=== PATIENT | female | born 1980 | race African-American/Black ===

== ENCOUNTER → 2020-05-13 | Day surgery (SDC) | payer BC ==
[~2020-05-13] VITALS: Ht 162.6 cm; Wt 73.5 kg
[~2020-05-13] MED LIST: LACTATED RINGERS 1,000 ML IV SCH; METOCLOPRAMIDE; NORCO 5-325; PROM25TA13; TRAM50TA
[2020-05-13 10:01] LABS: UCG SCREEN NEGATIVE
[2020-05-13 10:32] LABS: BASOPHILS % 0.9 % (0.0-2.0); EOSINOPHILS % 1.2 % (0.0-5.0); HEMATOCRIT. 41.5 % (36.0-48.0); LYMPHOCYTES % 35.5 % (20.0-50.0); MEAN CORPUSCULAR HEMOGLOBIN 30.6 pg (28.0-32.0); MEAN CORPUSCULAR VOLUME 90.6 fL (81.0-99.0); MEAN PLATELET VOLUME 8.1 fl (7.4-10.4); MONOCYTES % 7.4 % (2.0-8.0); PLATELET 394 x1000/uL (130-400); RED BLOOD CELL COUNT 4.58 mill/uL (4.2-5.4); RED CELL DISTRIBUTION WIDTH 13.9 % (11.6-14.6)
[2020-05-13 10:38] LABS: CHLORIDE 109 mEq/L (98-107)
[2020-05-13 10:43] LABS: PARTIAL THROMBOPLASTIN TIME 28.9 sec (23.4-31.0); PROTHROMBIN TIME 10.2 sec (9.6-11.0)
== END | disposition home or self-care (01) ==
LOC: OR 09:36
PROVIDERS: ATTEND Obstetrics & Gynecology
DX: D25.9 Leiomyoma of uterus, unspecified (principal); N93.8 Other specified abnormal uterine and vaginal bleeding; F17.210 Nicotine dependence, cigarettes, uncomplicated; Z79.899 Other long term (current) drug therapy; Z98.890 Other specified postprocedural states
CPT/HCPCS: 36415; 80053; 81025; 85025; 86850; 86900; 88305

== ENCOUNTER → 2020-05-13 | Outpatient (CLI) | payer BC ==
[~2020-05-13] MED LIST changes: +FENTANYL CITRATE/PF 50MCG/ML 2ML VIAL ONE; +GLYCOPYRROLATE 0.2 MG/ML 2ML VIAL ONE; -LACTATED RINGERS 1,000 ML IV SCH; +METOCLOPRAMIDE HCL 10MG/2ML VIAL ONE; +MIDAZOLAM HCL 2 MG/2 ML VIAL ONE; +ONDANSETRON HCL 4MG/2ML INJ ONE; +PROPOFOL 200MG/20ML VIAL IV ONE; +SUCCINYLCHOLINE CHLORIDE 200MG/10ML IV ONE
== END | disposition home or self-care (01) ==
LOC: LAB 08:38
PROVIDERS: ATTEND Obstetrics & Gynecology
DX: Z01.812 Encounter for preprocedural laboratory examination (principal); Z20.822 Contact with and (suspected) exposure to COVID-19; Z87.891 Personal history of nicotine dependence; Z79.899 Other long term (current) drug therapy; Z98.890 Other specified postprocedural states
CPT/HCPCS: 87426; J0330; J2250; J2405; J2704; J2765; J3010; J3490

== ENCOUNTER 2020-11-03 13:27 | Emergency (ER) | payer BC, MEDICAID ==
[~2020-11-03] VITALS: Ht 162.6 cm; Wt 73.0 kg
[2020-11-03] MEDS ORDERED: LIDOCAINE HCL/PF 1% 10 MG/ML 5ML VIAL INFIL ONE (14:30)
[2020-11-03] MEDS ORDERED: BACITRACIN ZINC OINT UDPKT TOP ONE (14:30)
[2020-11-03] MEDS ORDERED: ACETAMINOPHEN WITH CODEINE 300/30MG TABLET PO ONE (14:30)
[2020-11-03 15:33] VITALS: BP 128/99
[2020-11-03] MEDS ORDERED: CEPH500C2 MT (16:00)
[2020-11-03] MEDS ORDERED: METR-167 MT (16:00)
== END 2020-11-03 17:08 | disposition home or self-care (01) ==
LOC: ER 13:27
DX: L02.611 Cutaneous abscess of right foot (principal); N76.0 Acute vaginitis; B96.89 Other specified bacterial agents as the cause of diseases classified elsewhere
CPT/HCPCS: 10060; 87210; 99284; A4217; J3490; Z7610

== ENCOUNTER → 2021-01-20 | Day surgery (SDC) | payer BC ==
[~2021-01-20] VITALS: Ht 162.6 cm; Wt 72.6 kg
[~2021-01-20] MED LIST changes: +CEPH500C2 MT; -FENTANYL CITRATE/PF 50MCG/ML 2ML VIAL ONE; -GLYCOPYRROLATE 0.2 MG/ML 2ML VIAL ONE; +HYDROMORPHONE HCL/PF 2MG/ML CPJ IV PRN; +LABETALOL 5MG/ML SYR 20 MG/4 ML SYRINGE IV PRN; +LABETALOL HCL 5MG/ML VIAL 20ML IV ONE; +LACTATED RINGERS 1,000 ML IV SCH; +MEPERIDINE HCL/PF 25MG/ML CPJ IV PRN; -METOCLOPRAMIDE; -METOCLOPRAMIDE HCL 10MG/2ML VIAL ONE; +METR-167 MT; -MIDAZOLAM HCL 2 MG/2 ML VIAL ONE; -NORCO 5-325; +ONDANSETRON HCL 4MG/2ML INJ IV PRN; -ONDANSETRON HCL 4MG/2ML INJ ONE; -PROM25TA13; -PROPOFOL 200MG/20ML VIAL IV ONE; -SUCCINYLCHOLINE CHLORIDE 200MG/10ML IV ONE; -TRAM50TA
[2021-01-20 08:54] LABS: CLARITY URINE CLEAR (CLEAR); COLOR URINE YELLOW (YELLOW); KETONES URINE NEGATIVE (NEGATIVE); LEUKOCYTE ESTERASE URINE NEGATIVE (NEGATIVE); NITRITE URINE NEGATIVE (NEGATIVE); OCCULT BLOOD URINE TRACE (NEGATIVE); PH URINE 5.5 (4.5-8.0); PROTEIN URINE NEGATIVE (NEGATIVE); SPECIFIC GRAVITY URINE 1.017 (1.005-1.030); UCG SCREEN NEGATIVE; UROBILINOGEN URINE 0.2 E.U./dL (0.2-1.0)
[2021-01-20 09:05] LABS: BASOPHILS % 1.3 % (0.0-2.0); EOSINOPHILS % 1.8 % (0.0-5.0); HEMATOCRIT. 41.1 % (36.0-48.0); HEMOGLOBIN. 13.5 g/dL (12.0-16.0); LYMPHOCYTES % 41.5 % (20.0-50.0); MEAN CORPUSCULAR HEMOGLOBIN 28.8 pg (28.0-32.0); MEAN CORPUSCULAR VOLUME 87.4 fL (81.0-99.0); MEAN PLATELET VOLUME 8.1 fl (7.4-10.4); MONOCYTES % 10.9 % (2.0-8.0); NEUTROPHILS % 44.5 % (40.0-76.0); PLATELET 426 x1000/uL (130-400); RED CELL DISTRIBUTION WIDTH 15.1 % (11.6-14.6)
[2021-01-20 09:13] LABS: CHLORIDE 111 mEq/L (98-107)
[2021-01-20 09:15] LABS: INR 0.9; PARTIAL THROMBOPLASTIN TIME 27.9 sec (23.4-31.0); PROTHROMBIN TIME 9.8 sec (9.6-11.0)
[2021-01-20 13:29] VITALS: BP 145/92
== END | disposition home or self-care (01) ==
LOC: OR 08:15
PROVIDERS: ATTEND Obstetrics & Gynecology
DX: D25.9 Leiomyoma of uterus, unspecified (principal); I10 Essential (primary) hypertension; Z79.899 Other long term (current) drug therapy; Z98.890 Other specified postprocedural states; Z20.822 Contact with and (suspected) exposure to COVID-19
CPT/HCPCS: 36415; 58561; 80053; 81003; 81025; 85025; 85610; 85730; 86850; 86900; 86901; 87426; 88305; C1893; J1170; J2405; J3490

== ENCOUNTER 2021-06-02 11:36 | Emergency (ER) | payer BC, MEDICAID ==
[~2021-06-02] VITALS: Ht 167.6 cm; Wt 73.0 kg
[2021-06-02 11:44] VITALS: BP 157/100
[2021-06-02 14:22] LABS: CLARITY URINE CLEAR (CLEAR); COLOR URINE YELLOW (YELLOW); KETONES URINE NEGATIVE (NEGATIVE); LEUKOCYTE ESTERASE URINE NEGATIVE (NEGATIVE); NITRITE URINE NEGATIVE (NEGATIVE); OCCULT BLOOD URINE NEGATIVE (NEGATIVE); PH URINE 5.5 (4.5-8.0); PROTEIN URINE NEGATIVE (NEGATIVE); SPECIFIC GRAVITY URINE 1.015 (1.005-1.030); UROBILINOGEN URINE 0.2 E.U./dL (0.2-1.0)
[2021-06-02] MEDS ORDERED: FLUC150T5 MT (16:31)
[2021-06-02] MEDS ORDERED: METR-167 MT (16:31)
== END 2021-06-02 15:09 | disposition home or self-care (01) ==
LOC: ER 11:36
DX: N76.0 Acute vaginitis (principal); B96.89 Other specified bacterial agents as the cause of diseases classified elsewhere; R03.0 Elevated blood-pressure reading, without diagnosis of hypertension
CPT/HCPCS: 81003; 81025; 87210; 99283

== ENCOUNTER → 2021-09-26 | Emergency (ER) | payer MEDICAID ==
[~2021-09-26] VITALS: Ht 162.6 cm; Wt 71.6 kg
[~2021-09-26] MED LIST changes: -CEPH500C2 MT; +FLUC150T46 MT; -HYDROMORPHONE HCL/PF 2MG/ML CPJ IV PRN; -LABETALOL 5MG/ML SYR 20 MG/4 ML SYRINGE IV PRN; -LABETALOL HCL 5MG/ML VIAL 20ML IV ONE; -LACTATED RINGERS 1,000 ML IV SCH; +LIDOCAINE HCL 1% 20ML VIAL (Pyxis) INJ INFIL ONE; -MEPERIDINE HCL/PF 25MG/ML CPJ IV PRN; +NITR-87 MT; -ONDANSETRON HCL 4MG/2ML INJ IV PRN
[2021-09-26 04:41] VITALS: BP 125/87
== END ==
LOC: ER 04:37
DX: S51.812A Laceration without foreign body of left forearm, initial encounter (principal); R00.0 Tachycardia, unspecified; X99.9XXA Assault by unspecified sharp object, initial encounter; Y93.89 Activity, other specified; Y92.524 Gas station as the place of occurrence of the external cause
CPT/HCPCS: 12002; 93005; 99283; J3490

== ENCOUNTER 2021-10-07 15:58 | Emergency (ER) | payer MEDICAID ==
[~2021-10-07] VITALS: Ht 162.6 cm; Wt 73.0 kg
[~2021-10-07 15:58] MED LIST changes: -LIDOCAINE HCL 1% 20ML VIAL (Pyxis) INJ INFIL ONE; -NITR-87 MT
[2021-10-07 16:21] VITALS: BP 151/100
== END 2021-10-07 18:25 | disposition left against medical advice (07) ==
LOC: ER 15:58
DX: Z53.21 Procedure and treatment not carried out due to patient leaving prior to being seen by health care provider (principal)
CPT/HCPCS: 99281

== ENCOUNTER 2021-10-09 08:51 | Emergency (ER) | payer MEDICAID ==
[~2021-10-09] VITALS: Ht 165.1 cm; Wt 73.0 kg
[2021-10-09 10:24] VITALS: BP 123/85
== END 2021-10-09 10:25 | disposition home or self-care (01) ==
LOC: ER 08:55
DX: S41.111D Laceration without foreign body of right upper arm, subsequent encounter (principal); X58.XXXD Exposure to other specified factors, subsequent encounter
CPT/HCPCS: 99281

== ENCOUNTER 2021-11-20 10:35 | Emergency (ER) | payer MEDICAID, OTHER ==
[~2021-11-20] VITALS: Ht 162.6 cm; Wt 80.0 kg
[2021-11-20 13:29] LABS: CLARITY URINE CLEAR (CLEAR); COLOR URINE YELLOW (YELLOW); KETONES URINE NEGATIVE (NEGATIVE); LEUKOCYTE ESTERASE URINE TRACE (NEGATIVE); NITRITE URINE NEGATIVE (NEGATIVE); OCCULT BLOOD URINE 2+ (NEGATIVE); PROTEIN URINE NEGATIVE (NEGATIVE); SPECIFIC GRAVITY URINE 1.013 (1.005-1.030); UROBILINOGEN URINE 0.2 E.U./dL (0.2-1.0)
[2021-11-20] MEDS ORDERED: NITR-87 MT (13:48)
[2021-11-20] MEDS ORDERED: METR-167 MT (13:48)
[2021-11-20 13:54] VITALS: BP 131/80
== END 2021-11-20 13:56 | disposition home or self-care (01) ==
LOC: ER 10:50
DX: N39.0 Urinary tract infection, site not specified (principal); N76.0 Acute vaginitis; Z79.899 Other long term (current) drug therapy
CPT/HCPCS: 81003; 99283

== ENCOUNTER 2022-01-05 20:39 | Emergency (ER) | payer OTHER ==
[~2022-01-05] VITALS: Ht 162.6 cm; Wt 71.2 kg
[~2022-01-05 20:39] MED LIST changes: +NITR-87 MT
[2022-01-05] MEDS ORDERED: HYDROCODONE/ACETAMINOPHEN 5/325MG TABLET PO ONE (23:15)
[2022-01-06] MEDS ORDERED: HYDR-4001 MT ×2 (00:22→00:30)
[2022-01-06] MEDS ORDERED: FLUC150T46 MT (00:22)
[2022-01-06] MEDS ORDERED: TRAZ-251 MT (00:22)
[2022-01-06] MEDS ORDERED: METR-167 MT (00:22)
[2022-01-06 00:50] VITALS: BP 154/75
== END 2022-01-06 00:57 | disposition home or self-care (01) ==
LOC: ER 20:39
DX: S20.211A Contusion of right front wall of thorax, initial encounter (principal); N76.0 Acute vaginitis; F17.290 Nicotine dependence, other tobacco product, uncomplicated; G47.00 Insomnia, unspecified; Z98.890 Other specified postprocedural states; Y93.I9 Activity, other involving external motion; Y93.89 Activity, other specified; Y92.89 Other specified places as the place of occurrence of the external cause; Y99.8 Other external cause status
CPT/HCPCS: 71045; 71100; 99284; 99406

== ENCOUNTER 2022-04-27 22:14 | Emergency (ER) | payer MEDICAID, OTHER ==
[~2022-04-27] VITALS: Ht 162.6 cm; Wt 68.0 kg
[~2022-04-27 22:14] MED LIST changes: +HYDR-4001 MT; +TRAZ-251 MT
[2022-04-27 22:23] VITALS: BP 158/94
[2022-04-27] MEDS ORDERED: METR-167 MT (23:52)
[2022-04-28 01:58] LABS: CLARITY URINE CLEAR (CLEAR); COLOR URINE YELLOW (YELLOW); KETONES URINE NEGATIVE (NEGATIVE); LEUKOCYTE ESTERASE URINE NEGATIVE (NEGATIVE); NITRITE URINE NEGATIVE (NEGATIVE); OCCULT BLOOD URINE NEGATIVE (NEGATIVE); PH URINE 5.5 (4.5-8.0); PROTEIN URINE NEGATIVE (NEGATIVE); SPECIFIC GRAVITY URINE 1.012 (1.005-1.030); UROBILINOGEN URINE 0.2 E.U./dL (0.2-1.0)
== END 2022-04-28 00:04 | disposition home or self-care (01) ==
LOC: ER 22:14
DX: N76.0 Acute vaginitis (principal); Z98.890 Other specified postprocedural states
CPT/HCPCS: 81003; 99283

== ENCOUNTER 2022-06-18 09:52 | Emergency (ER) | payer MEDICAID ==
[~2022-06-18] VITALS: Ht 162.6 cm; Wt 71.2 kg
[2022-06-18 09:55] VITALS: BP 142/94
[2022-06-18] MEDS ORDERED: ITRA100C PO ×3 (11:57→12:00)
[2022-06-18] MEDS ORDERED: EFIN4SOL TP (12:07)
== END 2022-06-18 12:14 | disposition home or self-care (01) ==
LOC: ER 09:52
DX: B35.1 Tinea unguium (principal); Z79.899 Other long term (current) drug therapy; Z98.890 Other specified postprocedural states
CPT/HCPCS: 99283

== ENCOUNTER 2023-08-28 12:33 | Emergency (ER) | payer SELFPAY ==
[~2023-08-28] VITALS: Ht 162.6 cm; Wt 73.0 kg
[~2023-08-28 12:33] MED LIST changes: +EFIN4SOL TP
[2023-08-28 12:55] VITALS: BP 143/82; PULSE 89; RESP 16; TEMP 98.9; O2SAT 100
[2023-08-28 14:19] LABS: CLARITY URINE CLOUDY (CLEAR); COLOR URINE YELLOW (YELLOW); GLUCOSE URINE NEGATIVE (NEGATIVE); KETONES URINE NEGATIVE (NEGATIVE); LEUKOCYTE ESTERASE URINE NEGATIVE (NEGATIVE); NITRITE URINE NEGATIVE (NEGATIVE); OCCULT BLOOD URINE NEGATIVE (NEGATIVE); PROTEIN URINE NEGATIVE (NEGATIVE); SPECIFIC GRAVITY URINE 1.013 (1.005-1.030); UROBILINOGEN URINE 0.2 E.U./dL (0.2-1.0)
[2023-08-28 14:40] LABS: BACTERIA URINE 2+; SQUAMOUS EPITHELIAL CELL URINE 3+ /lpf (RARE/1+)
[2023-08-28 14:41] LABS: RBC URINE 0-2 /hpf (0-2); WBC URINE 0-2 /hpf (0-2)
[2023-08-28] MEDS ORDERED: FLUC150T46 MT (15:37)
[2023-08-28] MEDS ORDERED: METR70GE5 VG (15:37)
[2023-08-30] MEDS ORDERED: METR-167 MT (13:50)
[2023-08-31 04:08] LABS: CHLAMYDIA TRACHOMATIS NAA Negative (Negative); NEISSERIA GONORRHOEAE NAA Negative (Negative)
== END 2023-08-28 15:53 | disposition home or self-care (01) ==
LOC: ER 12:33
DX: N76.0 Acute vaginitis (principal); Z98.890 Other specified postprocedural states
CPT/HCPCS: 81003; 81025; 87210; 87491; 87591; 99284